=== PATIENT | male | born 1945 | race Caucasian/White ===

== ENCOUNTER 2020-03-03 11:41 | Observation (INO) ==
[2020-03-03 12:09] LABS: Basophils # 0.1 K/mcL (0.0-0.2); Basophils % 0.8 %; Eosinophils # 0.1 K/mcL (0.0-0.6); Eosinophils % 1.3 %; Hematocrit 50.2 % (37.5-50.1); Hemoglobin 16.7 g/dL (12.9-16.9); Immature Granulocytes % 0.5 % (0-4); Lymphocytes # 1.3 K/mcL (0.6-4.6); Lymphocytes % 15.1 %; Mean Corpuscular HGB Conc 33.3 g/dL (31.6-35.5); Mean Corpuscular Volume 87.3 fL (83.0-100.0); Mean Platelet Volume 9.7 fL (9.4-12.4); Monocytes # 0.7 K/mcL (0.0-1.3); Monocytes % 7.5 %; Neutrophils # 6.6 K/mcL (1.6-8.9); Platelet Count 271 K/mcL (140-400); Red Blood Count 5.75 M/mcL (4.19-5.50); Red Cell Distribution Width 12.7 % (11.5-14.5); Segmented Neutrophils % 74.8 %; White Blood Count 8.8 K/mcL (4.3-11.1)
[2020-03-03 12:17] LABS: Prothrombin Time 11.8 Seconds (9.4-12.1)
[2020-03-03 12:20] LABS: Activated Partial Thrombo Time 37.3 Seconds (26.0-36.0)
[2020-03-03] MEDS: DilTIAZem 50 MG/50 ML IV.SOLN IVC SCH ×2 (12:28→18:25)
[2020-03-03 12:37] LABS: BUN/Creatinine Ratio 14 (6-26); Blood Urea Nitrogen 13 mg/dL (8-23); Calcium 9.3 mg/dL (8.6-10.3); Carbon Dioxide 28 mEq/L (23-29); Chloride 101 mEq/L (98-107); Glucose 125 mg/dL (70-105); Osmolality,Calculated 286 (280-300); Potassium 3.7 mEq/L (3.5-5.1); Sodium 137 mEq/L (136-145); eGFR For African Americans > 60 (> 60); eGFR For Non-African Americans > 60 (> 60)
[2020-03-03 13:06] LABS: Troponin I 0.03 ng/mL (< 0.04)
[2020-03-03] MEDS ORDERED: Naloxone 0.4 MG/ML INJ IVP PRN (16:36)
[2020-03-03] MEDS ORDERED: *HR* Heparin 5,000 UNIT/ML VIAL IVP ONE (16:38)
[2020-03-03] MEDS ORDERED: *HR* Heparin 5,000 UNIT/ML VIAL IVP PRN ×2 (16:38)
[2020-03-03] MEDS ORDERED: Perflutren Lipid Microsphere 1.3 ML in 0.9 % Sodium Chloride 8.7 ML IVP PRN (16:38)
[2020-03-03] MEDS: Heparin 25,000UNIT/250ML 1/2NS 25,000 UNIT/250 ML IV.SOLN IVC SCH (18:16)
[2020-03-03 18:42] LABS: INR 1.1
[2020-03-03 18:49] LABS: Heparin anti-factor XA UFH 1.48 IU/mL (0.30-0.70)
[2020-03-03 19:13] LABS: Hematocrit 50.3 % (37.5-50.1); Hemoglobin 16.7 g/dL (12.9-16.9); Mean Corpuscular HGB Conc 33.2 g/dL (31.6-35.5); Mean Corpuscular Hemoglobin 29.1 pg (28.0-33.3); Mean Corpuscular Volume 87.6 fL (83.0-100.0); Mean Platelet Volume 10.2 fL (9.4-12.4); Platelet Count 316 K/mcL (140-400); Red Blood Count 5.74 M/mcL (4.19-5.50); Red Cell Distribution Width 12.7 % (11.5-14.5); White Blood Count 10.4 K/mcL (4.3-11.1)
[2020-03-04 03:50] LABS: Basophils # 0.1 K/mcL (0.0-0.2); Basophils % 0.9 %; Eosinophils # 0.3 K/mcL (0.0-0.6); Eosinophils % 2.8 %; Hematocrit 46.3 % (37.5-50.1); Hemoglobin 15.6 g/dL (12.9-16.9); Immature Granulocytes % 0.4 % (0-4); Lymphocytes # 2.9 K/mcL (0.6-4.6); Lymphocytes % 30.8 %; Mean Corpuscular HGB Conc 33.7 g/dL (31.6-35.5); Mean Corpuscular Hemoglobin 29.3 pg (28.0-33.3); Mean Platelet Volume 10.2 fL (9.4-12.4); Monocytes # 0.9 K/mcL (0.0-1.3); Monocytes % 9.2 %; Neutrophils # 5.3 K/mcL (1.6-8.9); Platelet Count 277 K/mcL (140-400); Red Blood Count 5.32 M/mcL (4.19-5.50); Red Cell Distribution Width 12.7 % (11.5-14.5); Segmented Neutrophils % 55.9 %; White Blood Count 9.5 K/mcL (4.3-11.1)
[2020-03-04 04:08] LABS: Chol/HDL Ratio 2.7 (0-4.9)
[2020-03-04 04:09] LABS: BUN/Creatinine Ratio 18 (6-26); Blood Urea Nitrogen 15 mg/dL (8-23); Calcium 8.8 mg/dL (8.6-10.3); Carbon Dioxide 24 mEq/L (23-29); Chloride 102 mEq/L (98-107); Glucose 102 mg/dL (70-105); Magnesium 1.8 mg/dL (1.6-2.6); Osmolality,Calculated 285 (280-300); Phosphorous 3.7 mg/dL (2.7-4.5); Potassium 3.7 mEq/L (3.5-5.1); Sodium 137 mEq/L (136-145); eGFR For African Americans > 60 (> 60); eGFR For Non-African Americans > 60 (> 60)
[2020-03-04 04:23] LABS: Thyroid Stimulating Hormone 2.123 mcIU/mL (0.340-5.600)
[2020-03-04] MEDS: Aspirin Enteric Coated 81 MG Tablet PO SCH (07:36)
[2020-03-04] MEDS: Sennosides/Docusate Sodium TABLET PO SCH (12:14)
[2020-03-04] MEDS ORDERED: amLODIPine 5 MG TABLET PO SCH (15:45)
[2020-03-05] MEDS: Sennosides/Docusate Sodium TABLET PO SCH ×2 (02:05→07:42)
[2020-03-05] MEDS: Aspirin Enteric Coated 81 MG Tablet PO SCH (07:42)
[2020-03-05] MEDS ORDERED: Lidocaine Viscous Oral Soln 15 ML SOLUTION MM PRN (10:00)
[2020-03-05] MEDS ORDERED: 0.9 % Sodium Chloride 500 ML IVC ONE (10:00)
[2020-03-05] MEDS: *HR* FentaNYL (PF) 100 MCG/2 ML VIAL IVP PRN ×2 (10:20→10:50)
[2020-03-05] MEDS: *HR* Midazolam HCl 5 MG/5 ML VIAL IVP PRN ×3 (10:20→10:55)
[2020-03-05] MEDS: Heparin 25,000UNIT/250ML 1/2NS 25,000 UNIT/250 ML IV.SOLN IVC SCH ×2 (11:58)
[2020-03-05 15:55] VITALS: BP 111/68
== END 2020-03-05 17:43 | disposition home or self-care (01) ==
LOC: 2ANU 11:41 → EMEROOARM 11:41 → 2ANU 15:50
PROVIDERS: ADMIT Internal Medicine; ATTEND Internal Medicine